=== PATIENT | female | born 1930 | race Caucasian/White ===

== ENCOUNTER 2018-05-30 10:23 | Inpatient (IN) | payer MEDICARE ==
[~2018-05-30] VITALS: Ht 147.3 cm; Wt 92.7 kg
[~2018-05-30 10:23] MED LIST: ACET-2717 PO; AEC81 PO; ALBUTEROL NEB; ATOR40TA28 PO; CARB-100 PO; DEXT1CAP3 PO; FISH1CAP63 PO; ISOS30TA6 PO; METO-408 PO; MULT-1250 PO; NITR0.4T SL; Q10 PO; VIT1TABL6 PO; [UNRECOGNIZED DRUG - OTHER] PUFF
[2018-05-30] MEDS ORDERED: METOPROLOL TARTRATE 1 MG/ML 5ML VIAL IV ONE ×3 (11:26→12:36)
[2018-05-30] MEDS ORDERED: SODIUM CHLORIDE 0.9% 500ML 500 ML IV ONE (11:26)
[2018-05-30 11:27] LABS: BASOPHILS % (AUTO) 0.5 % (0.0-5.0); EOSINOPHILS % (AUTO) 0.8 % (0.0-8.0); LYMPHOCYTES % (AUTO) 12.4 % (21.0-51.0); MEAN CORPUSCULAR VOLUME 93.8 fL (79-99); MONOCYTES % (AUTO) 6.9 % (3.0-13.0); NEUTROPHILS % (AUTO) 79.4 % (40.0-77.0); PLATELET COUNT (AUTO) 265 K/uL (130-400); RED BLOOD CELL COUNT(AUTO) 4.16 MIL/uL (4.00-5.50); RED CELL DISTRIBUTION WIDTH 14.3 % (11.0-15.5); WHITE BLOOD COUNT (AUTO) 7.6 K/uL (4.8-10.8)
[2018-05-30 11:42] LABS: CREATININE 0.9 mg/dL (0.5-1.5); POTASSIUM 4.2 mmol/L (3.5-5.1)
[2018-05-30 11:47] LABS: ALBUMIN 3.3 g/dL (3.5-5.0); BILIRUBIN,TOTAL 0.8 mg/dL (0.2-1.0); TOTAL PROTEIN, SERUM 6.7 g/dL (6.0-8.3)
[2018-05-30 12:04] LABS: TROPONIN I 0.25 ng/mL (0.00-0.06)
[2018-05-30] MEDS ORDERED: ASPIRIN 81MG TAB.CHEW ONE (12:36)
[2018-05-30] MEDS ORDERED: SODIUM CHLORIDE 0.9% 1000ML 1,000 ML IV SCH (14:15)
[2018-05-30] MEDS ORDERED: DILTIAZEM 125MG+100 ML NS 125 ML IV SCH (14:15)
[2018-05-30 14:45] VITALS: BP 137/83
[2018-05-30 16:35] VITALS: BP 124/70
[2018-05-30] MEDS ORDERED: MIDO5TAB PO (18:02)
[2018-05-30] MEDS ORDERED: SALBUTAMOL PUFF (18:02)
[2018-05-30] MEDS ORDERED: ALBUTEROL NEB (18:02)
[2018-05-30] MEDS: IPRATROPIUM 0.5 MG/2.5 ML INH IH SCH (18:46)
[2018-05-30 19:23] LABS: TROPONIN I 0.43 ng/mL (0.00-0.06)
[2018-05-30 19:38] VITALS: BP 107/75
[2018-05-30 23:36] VITALS: BP 132/82
[2018-05-31] MEDS: IPRATROPIUM 0.5 MG/2.5 ML INH IH SCH ×5 (01:17→23:19)
[2018-05-31 03:36] LABS: TROPONIN I 0.38 ng/mL (0.00-0.06)
[2018-05-31 03:58] VITALS: BP 147/97
[2018-05-31 07:41] VITALS: BP 154/81
[2018-05-31] MEDS ORDERED: ACETAMINOPHEN 325 MG TAB PO PRN (08:30)
[2018-05-31] MEDS: LEVOFLOXACIN 500 MG/D5W 100 ML 100 ML IV SCH (08:55)
[2018-05-31] MEDS: METHYLPREDNISOLONE SOD SUCC 125MG/2ML VIAL IVP SCH ×2 (08:55→16:06)
[2018-05-31] MEDS: ASPIRIN 325 MG TABLET PO SCH (09:02)
[2018-05-31 09:06] LABS: TROPONIN I 0.31 ng/mL (0.00-0.06)
[2018-05-31] MEDS ORDERED: FUROSEMIDE 10 MG/ML 2ML VIAL IV SCH (09:45)
[2018-05-31 11:25] VITALS: BP 135/88
[2018-05-31 11:33] VITALS: BP 140/91
[2018-05-31] MEDS: METOPROLOL TARTRATE 25 MG TAB PO SCH ×2 (11:57→22:24)
[2018-05-31 16:39] VITALS: BP 129/94
[2018-05-31 19:03] VITALS: BP 127/75
[2018-06-01 00:13] VITALS: BP 129/95
[2018-06-01] MEDS: METHYLPREDNISOLONE SOD SUCC 125MG/2ML VIAL IVP SCH ×4 (00:25→23:55)
[2018-06-01 04:16] VITALS: BP 134/87
[2018-06-01] MEDS: IPRATROPIUM 0.5 MG/2.5 ML INH IH SCH ×3 (06:51→19:42)
[2018-06-01 07:32] VITALS: BP 144/87
[2018-06-01] MEDS: LEVOFLOXACIN 500 MG/D5W 100 ML 100 ML IV SCH (10:02)
[2018-06-01] MEDS: ASPIRIN 325 MG TABLET PO SCH (10:02)
[2018-06-01] MEDS: FUROSEMIDE 10 MG/ML 2ML VIAL IV SCH ×2 (10:02→20:56)
[2018-06-01] MEDS: METOPROLOL TARTRATE 25 MG TAB PO SCH ×2 (10:02→20:57)
[2018-06-01 11:07] VITALS: BP 136/83
[2018-06-01] MEDS ORDERED: NITROGLYCERIN 0.4 MG SL TAB SL PRN (13:00)
[2018-06-01] MEDS ORDERED: ALBUTEROL SULFATE 0.083% 2.5 MG/3 ML INH IH PRN (13:00)
[2018-06-01] MEDS: SINEMET PO SCH ×2 (14:00→20:58)
[2018-06-01] MEDS: MIDODRINE HCL 5 MG TABLET PO SCH ×2 (14:00→20:57)
[2018-06-01 16:16] VITALS: BP 129/85
[2018-06-01 19:45] VITALS: BP 127/82
[2018-06-01] MEDS ORDERED: ATORVASTATIN CALCIUM 40 MG TABLET PO SCH (21:00)
[2018-06-02] VITALS: BP 145/91
[2018-06-02] MEDS: IPRATROPIUM 0.5 MG/2.5 ML INH IH SCH ×3 (00:25→10:57)
[2018-06-02 04:00] VITALS: BP 141/75
[2018-06-02 04:25] LABS: CREATININE 1.3 mg/dL (0.5-1.5); POTASSIUM 3.3 mmol/L (3.5-5.1)
[2018-06-02 08:09] VITALS: BP 138/76
[2018-06-02] MEDS: METOPROLOL TARTRATE 25 MG TAB PO SCH (08:37)
[2018-06-02] MEDS: ASPIRIN 325 MG TABLET PO SCH (08:37)
[2018-06-02] MEDS: MIDODRINE HCL 5 MG TABLET PO SCH ×2 (08:38→14:16)
[2018-06-02] MEDS: SINEMET PO SCH ×2 (08:39→14:10)
[2018-06-02] MEDS: METHYLPREDNISOLONE SOD SUCC 125MG/2ML VIAL IVP SCH (08:43)
[2018-06-02] MEDS: LEVOFLOXACIN 500 MG/D5W 100 ML 100 ML IV SCH (08:44)
[2018-06-02] MEDS ORDERED: MULTIVITAMINS/MINERALS/IRO TAB PO SCH (09:00)
[2018-06-02] MEDS ORDERED: FUROSEMIDE 20 MG TABLET PO SCH (09:00)
[2018-06-02] MEDS ORDERED: SALBUTAMOL PO PRN (09:00)
[2018-06-02] MEDS ORDERED: **HM** CO Q-10 200MG PO SCH (09:00)
[2018-06-02] MEDS ORDERED: [UNRECOGNIZED DRUG - OTHER] PO SCH (09:00)
[2018-06-02] MEDS ORDERED: ISOSORBIDE MONO 30MG TAB SR PO SCH (09:00)
[2018-06-02] MEDS ORDERED: FISH OIL 1000 MG/CAP PO SCH (09:00)
[2018-06-02 11:28] VITALS: BP 152/77
== END 2018-06-02 15:10 | disposition home or self-care (01) | DRG 190 ==
LOC: EDH 10:23 → EDHIP 13:20 → 2DH 14:36
PROVIDERS: ADMIT Internal Medicine Hematology & Oncology; ATTEND Internal Medicine Hematology & Oncology
DX: J44.1 Chronic obstructive pulmonary disease with (acute) exacerbation (principal); I50.33 Acute on chronic diastolic (congestive) heart failure; J45.901 Unspecified asthma with (acute) exacerbation; C56.9 Malignant neoplasm of unspecified ovary; I25.10 Atherosclerotic heart disease of native coronary artery without angina pectoris; G20 Parkinson's disease; I44.7 Left bundle-branch block, unspecified; F02.80 Dementia in other diseases classified elsewhere, unspecified severity, without behavioral disturbance, psychotic disturbance, mood disturbance, and anxiety; I48.91 Unspecified atrial fibrillation; R74.8 Abnormal levels of other serum enzymes; E78.5 Hyperlipidemia, unspecified; I11.0 Hypertensive heart disease with heart failure; Z95.1 Presence of aortocoronary bypass graft; Z85.841 Personal history of malignant neoplasm of brain; Z92.21 Personal history of antineoplastic chemotherapy
CPT/HCPCS: 36415; 71045; 80048; 80053; 82550; 83874; 83880; 84443; 84484; 85025; 93005; 93306; 94640; 94664; 97039; A4218; J1940; J1956; J2930; J3490; J7040

== ENCOUNTER 2018-09-28 12:05 | Inpatient (IN) | payer MEDICARE ==
[~2018-09-28] VITALS: Ht 149.9 cm; Wt 46.4 kg
[~2018-09-28 12:05] MED LIST changes: -DEXT1CAP3 PO; +MIDO5TAB PO; +SALBUTAMOL PUFF; -VIT1TABL6 PO; -[UNRECOGNIZED DRUG - OTHER] PUFF
[2018-09-28] MEDS ORDERED: IPRATROPIUM/ALBUTEROL SULFATE 3 ML SOLUTION IH ONE (12:22)
[2018-09-28 12:42] LABS: ABG BASE EXCESS 3.1 mmol/L (-2.0-3.0); ABG HCO3 27.1 mmol/L (21.0-28.0); ABG OXYGEN SATURATION 94.5 % (95.0-99.0); ABG PCO2 40 mmHg (32-45)
[2018-09-28] MEDS ORDERED: METHYLPREDNISOLONE SOD SUCC 125MG/2ML VIAL ONE ×2 (12:45→12:58)
[2018-09-28] MEDS ORDERED: SODIUM CHLORIDE 0.9% 100 ML IV ONE (12:45)
[2018-09-28 13:12] LABS: BASOPHILS % (AUTO) 0.1 % (0.0-5.0); EOSINOPHILS % (AUTO) 0.3 % (0.0-8.0); HEMATOCRIT 38.6 % (36-48); MEAN CORPUSCULAR HEMOGLOBIN 30.1 pg (27.0-33.0); MEAN CORPUSCULAR HGB CONC 33.2 g/dL (32.0-36.0); MEAN CORPUSCULAR VOLUME 90.6 fL (79-99); MONOCYTES % (AUTO) 7.6 % (3.0-13.0); PLATELET COUNT (AUTO) 306 K/uL (130-400); RED BLOOD CELL COUNT(AUTO) 4.26 MIL/uL (4.00-5.50); RED CELL DISTRIBUTION WIDTH 15.1 % (11.0-15.5); WHITE BLOOD COUNT (AUTO) 9.6 K/uL (4.8-10.8)
[2018-09-28 13:15] LABS: ALBUMIN 3.2 g/dL (3.5-5.0); BILIRUBIN,DIRECT 0.1 mg/dL (0.0-0.3); BILIRUBIN,TOTAL 0.4 mg/dL (0.2-1.0); CREATININE 1.1 mg/dL (0.5-1.5); TOTAL PROTEIN, SERUM 6.6 g/dL (6.0-8.3)
[2018-09-28 13:47] LABS: B-TYPE NATRIURETIC PEPTIDE > 5000 pg/mL (0-100)
[2018-09-28] MEDS ORDERED: LACTULOSE 20 GM/30 ML UDCUP PO PRN (15:30)
[2018-09-28] MEDS ORDERED: NITROGLYCERIN 0.4 MG SL TAB SL PRN ×2 (15:30→23:15)
[2018-09-28] MEDS: METHYLPREDNISOLONE SOD SUCC 125MG/2ML VIAL IV SCH ×2 (15:30→23:25)
[2018-09-28] MEDS ORDERED: ACETAMINOPHEN 325 MG TAB PO PRN ×2 (15:30)
[2018-09-28] MEDS ORDERED: ONDANSETRON HCL 4 MG/2 ML VIAL IV PRN (15:30)
[2018-09-28] MEDS ORDERED: HYDRALAZINE HCL 20 MG/ML VIAL IV PRN (15:30)
[2018-09-28 18:14] VITALS: BP 138/77
[2018-09-28] MEDS: LEVOFLOXACIN 500 MG/D5W 100 ML 100 ML IV SCH (18:49)
[2018-09-28] MEDS: IPRATROPIUM/ALBUTEROL SULFATE 3 ML SOLUTION IH SCH ×2 (20:04→23:24)
[2018-09-28] MEDS: BUDESONIDE 0.5 MG/2 ML INH IH SCH (20:07)
[2018-09-28] MEDS: FUROSEMIDE 10 MG/ML 4ML VIAL IVP SCH (20:10)
[2018-09-28] MEDS: FAMOTIDINE/PF 20 MG/2 ML VIAL IV SCH (20:11)
[2018-09-28] MEDS: METOPROLOL TARTRATE 25 MG TAB PO SCH (20:11)
[2018-09-28 23:09] VITALS: BP 121/81
[2018-09-28] MEDS ORDERED: LISI2.5T2 PO (23:12)
[2018-09-28] MEDS ORDERED: PIMA34CA PO (23:12)
[2018-09-28] MEDS ORDERED: FURO20TA4 PO (23:12)
[2018-09-29 04:00] VITALS: BP 119/79
[2018-09-29 04:49] LABS: ABG BASE EXCESS 3.9 mmol/L (-2.0-3.0); ABG HCO3 27.2 mmol/L (21.0-28.0); ABG OXYGEN SATURATION 98.8 % (95.0-99.0); ABG PCO2 37 mmHg (32-45)
[2018-09-29] MEDS: BUDESONIDE 0.5 MG/2 ML INH IH SCH ×2 (06:18→19:08)
[2018-09-29] MEDS: IPRATROPIUM/ALBUTEROL SULFATE 3 ML SOLUTION IH SCH ×3 (06:18→19:08)
[2018-09-29 07:32] LABS: HEMATOCRIT 36.8 % (36-48); MEAN CORPUSCULAR HEMOGLOBIN 30.1 pg (27.0-33.0); MEAN CORPUSCULAR HGB CONC 33.4 g/dL (32.0-36.0); PLATELET COUNT (AUTO) 256 K/uL (130-400); RED BLOOD CELL COUNT(AUTO) 4.09 MIL/uL (4.00-5.50); RED CELL DISTRIBUTION WIDTH 14.9 % (11.0-15.5); WHITE BLOOD COUNT (AUTO) 8.7 K/uL (4.8-10.8)
[2018-09-29 07:39] LABS: CREATININE 1.3 mg/dL (0.5-1.5); POTASSIUM 3.8 mmol/L (3.5-5.1)
[2018-09-29 07:41] VITALS: BP 130/80
[2018-09-29] MEDS: ASPIRIN 81 MG EC TAB PO SCH (08:28)
[2018-09-29] MEDS: METOPROLOL TARTRATE 25 MG TAB PO SCH ×2 (08:29→21:00)
[2018-09-29] MEDS: LISINOPRIL 2.5 MG TABLET PO SCH (08:29)
[2018-09-29] MEDS: MULTIVITAMIN WITH MINERALS TABLET PO SCH (08:29)
[2018-09-29] MEDS: FISH OIL 1000 MG/CAP PO SCH (08:29)
[2018-09-29] MEDS: FAMOTIDINE/PF 20 MG/2 ML VIAL IV SCH ×2 (08:30→21:35)
[2018-09-29] MEDS: METHYLPREDNISOLONE SOD SUCC 125MG/2ML VIAL IV SCH ×3 (08:30→23:30)
[2018-09-29] MEDS: FUROSEMIDE 10 MG/ML 4ML VIAL IVP SCH ×2 (08:30→21:36)
[2018-09-29] MEDS: MIDODRINE HCL 5 MG TABLET PO SCH ×3 (08:30→21:00)
[2018-09-29] MEDS: ENOXAPARIN SODIUM 40 MG/0.4 ML SYRINGE SQ SCH (08:43)
[2018-09-29] MEDS: [UNRECOGNIZED DRUG - OTHER] PO SCH (09:00)
[2018-09-29] MEDS: LEVODOPA PO SCH ×3 (09:00→21:00)
[2018-09-29] MEDS ORDERED: FUROSEMIDE 20 MG TABLET PO SCH (09:00)
[2018-09-29] MEDS: CO ENZYME Q10 PO SCH (09:00)
[2018-09-29] MEDS: CARBIDOPA PO SCH ×3 (09:00→21:00)
[2018-09-29] MEDS: PIMAVANSERIN TARTRATE 34 MG PO SCH (09:00)
[2018-09-29] MEDS: [UNRECOGNIZED DRUG - OTHER] PO SCH ×3 (09:00→21:00)
[2018-09-29 11:17] VITALS: BP 118/74
[2018-09-29] MEDS: LEVOFLOXACIN 500 MG/D5W 100 ML 100 ML IV SCH (16:00)
--- NOTE | 2018-09-29 16:00 | NUR ---
WARREN BERNAL NOTE MET W PT AND SPOUSE WHO WILL PROVIDE TRANSPORT HOME ; PT ENG SPEAKING, FRAIL, AAOX3,O2 2 L NC IN USE; LIVES WITH STEVEN RAMIREZ , HAS DME, WKR, SAFETY EQUIPPED RESTROOM, WHEEL CHAIR, ETC. HAS HH AND PT IN THE PAST AT HOME. WANTS TO GO HOME RATHER THAN TO A FACLITY IF NEEDED THERAPY AFTER DISCHARGE; SPOUSE IN AGREEMENT; EXPLAINE DHTE PROCESS OF O2 AND HOW IF NEEDED WOULD RQUIRED CERTIFICATION. VERBALIZED UNDERSTANDING. WILL FOLLOW NEEDE Addendum: 09/29/18 at 1847 by MADELINE JAUREGUI RN CM Amended: Links added.
[2018-09-29 16:28] VITALS: BP 133/85
[2018-09-29 19:13] VITALS: BP 126/80
[2018-09-29] MEDS ORDERED: METOPROLOL SUCCINATE PO SCH (21:00)
[2018-09-29] MEDS: ATORVASTATIN CALCIUM 40 MG TABLET PO SCH (21:35)
[2018-09-29 23:26] VITALS: BP 112/67
[2018-09-30] MEDS: IPRATROPIUM/ALBUTEROL SULFATE 3 ML SOLUTION IH SCH ×4 (00:25→19:26)
[2018-09-30 03:29] VITALS: BP 139/73
[2018-09-30 04:25] LABS: HEMATOCRIT 37.1 % (36-48); LYMPHOCYTES % (AUTO) 2.6 % (21.0-51.0); MEAN CORPUSCULAR HEMOGLOBIN 29.5 pg (27.0-33.0); MEAN CORPUSCULAR VOLUME 89.4 fL (79-99); MONOCYTES % (AUTO) 3.5 % (3.0-13.0); NEUTROPHILS % (AUTO) 93.9 % (40.0-77.0); PLATELET COUNT (AUTO) 299 K/uL (130-400); RED BLOOD CELL COUNT(AUTO) 4.15 MIL/uL (4.00-5.50); RED CELL DISTRIBUTION WIDTH 14.5 % (11.0-15.5); WHITE BLOOD COUNT (AUTO) 11.8 K/uL (4.8-10.8)
[2018-09-30 04:37] LABS: CREATININE 1.4 mg/dL (0.5-1.5)
[2018-09-30] MEDS ORDERED: LIDOCAINE HCL-MPF 1% 2ML VIAL IVP PRN (05:15)
[2018-09-30] MEDS ORDERED: POTASSIUM CHLORIDE 10MEQ/100ML 100 ML IV PRN (05:15)
[2018-09-30] MEDS ORDERED: MAGNESIUM 2GM PREMIX 50ML 50 ML IV PRN (05:15)
[2018-09-30] MEDS ORDERED: POTASSIUM CHLORIDE 10% ELIXIR 20 MEQ/15 ML UDCUP PO PRN (05:15)
[2018-09-30] MEDS: BUDESONIDE 0.5 MG/2 ML INH IH SCH ×2 (05:30→19:26)
[2018-09-30] MEDS: POTASSIUM CHLORIDE 20 MEQ ERTAB PO PRN ×3 (05:49→13:25)
[2018-09-30] MEDS: METHYLPREDNISOLONE SOD SUCC 125MG/2ML VIAL IV SCH ×2 (06:55→15:30)
[2018-09-30 07:38] VITALS: BP 130/58
--- NOTE | 2018-09-30 08:00 | NUR ---
PT SITTING UP IN THE CHAIR. AT THE BEDSIDE. REVIEW PLAN OF CARE, PT IS ON 2LITER NC DENIES ANY SOB. CALL LIGHT INREACH.. PT HAS A PORTILLO CATHETER , PATENCY NOTED AND SECURE TO HER RT THIGH, WITH A CLEAR YELLOW URINE FLOW . CALL LIGHT IN REACH .
[2018-09-30] MEDS: METOPROLOL TARTRATE 25 MG TAB PO SCH ×2 (08:33→20:36)
[2018-09-30] MEDS: ASPIRIN 81 MG EC TAB PO SCH (08:33)
[2018-09-30] MEDS: LISINOPRIL 2.5 MG TABLET PO SCH (08:33)
[2018-09-30] MEDS: MIDODRINE HCL 5 MG TABLET PO SCH ×3 (08:33→20:36)
[2018-09-30] MEDS: MULTIVITAMIN WITH MINERALS TABLET PO SCH (08:33)
[2018-09-30] MEDS: FUROSEMIDE 10 MG/ML 4ML VIAL IVP SCH ×2 (08:34→20:36)
[2018-09-30] MEDS: FAMOTIDINE/PF 20 MG/2 ML VIAL IV SCH ×2 (08:34→20:36)
[2018-09-30] MEDS: FISH OIL 1000 MG/CAP PO SCH (08:34)
[2018-09-30] MEDS: LEVODOPA PO SCH ×3 (08:35→20:37)
[2018-09-30] MEDS: CARBIDOPA PO SCH ×3 (08:35→20:37)
[2018-09-30] MEDS: [UNRECOGNIZED DRUG - OTHER] PO SCH (08:35)
[2018-09-30] MEDS: [UNRECOGNIZED DRUG - OTHER] PO SCH ×3 (08:35→20:37)
[2018-09-30] MEDS: CO ENZYME Q10 PO SCH (08:35)
[2018-09-30] MEDS: PIMAVANSERIN TARTRATE 34 MG PO SCH (08:37)
[2018-09-30] MEDS: ENOXAPARIN SODIUM 40 MG/0.4 ML SYRINGE SQ SCH (08:38)
[2018-09-30 11:08] VITALS: BP 108/70
--- NOTE | 2018-09-30 13:30 | NUR ---
OFF O2 ON ROOM AIR . TO MONITOR RESP O2 SAT. OR RESP DISTRESS
--- NOTE | 2018-09-30 15:10 | NUR ---
ROSANA AGUILERA BLUEPRINT PROCESSOR. CALLED AND UPDATE OF PT. ASSESSMENT . CARE AND DRCrescencio ORDERS OF DR. JORGE AND DR SAENZ CLEARANCE OKAY TO GO HOME,, RE ASSESS PRIOR IF PT NEEDED O2 WITH DR. LATIF TO FOLLOW
[2018-09-30] MEDS: LEVOFLOXACIN 500 MG/D5W 100 ML 100 ML IV SCH (15:30)
--- NOTE | 2018-09-30 15:30 | NUR ---
SPOT CHECK OXGYEN RESULTS OF 02 SAT 94% RR OF 18 , OFFER NO SOB .
[2018-09-30 15:52] VITALS: BP 115/71
[2018-09-30 15:58] LABS: ABG BASE EXCESS 7.2 mmol/L (-2.0-3.0); ABG HCO3 30.2 mmol/L (21.0-28.0); ABG OXYGEN SATURATION 95.3 % (95.0-99.0); ABG PCO2 37 mmHg (32-45)
--- NOTE | 2018-09-30 16:15 | NUR ---
PORTILLO CATHETER DC PROCEDURE EXPLAIN TO PT. BALLOON DEFATED AND ASK TO TAKE A DEEP BREATH HOLD AND PORTILLO CATHETER DC . TOLERATE WELL ASK TO CALL NURSE OR STAFF TO MONITOR 1ST VOID AFTER DC PORTILLO CATHETER CALL LIGHT INREACH.
--- NOTE | 2018-09-30 16:50 | NUR ---
[facility]'S RESULTS CALLED IN TO ROSANA BUCK ACADEMIC SUPPORT COORDINATOR. PH OF 7.52, PCO2 OF 37.2 PO2 67.9 O2 SAT OF 95.3 % HCO2 OF 30.2 ON ROOM AIR . DISCHARGE HOME AND TO FOLLOW WITH DR. SAENZ. AND DR. JORGE . CARE .
--- NOTE | 2018-09-30 18:10 | NUR ---
DR. SAENZ CALLED AND UPDATE OF PT .STATUS OF DISCHARGE HOME AFTER PT VOIDS . AND FOLLOWUP CARE
--- NOTE | 2018-09-30 18:20 | NUR ---
PT IS STILL NOT VOIDED YET. CALL LIGHT IN REACH.
[2018-09-30 20:03] VITALS: BP 120/71
[2018-09-30] MEDS: ATORVASTATIN CALCIUM 40 MG TABLET PO SCH (20:36)
--- NOTE | 2018-09-30 23:08 | NUR ---
PT VOIDED 150 CC CLEAR YELLOW URINE. IV REMOVED. D/C INSTRUCTIONS PRINTED AND GIVEN TO PATIENT ALONG WITH PRESCRIPTION. PT VERBALIZES UNDERSTANDING. WHEELED DOWN BY AVTAR NDIAYE
== END 2018-09-30 22:45 | disposition home or self-care (01) | DRG 291 ==
LOC: EDH 12:05 → EDHIP 15:29 → 4BH 17:16
PROVIDERS: ADMIT Internal Medicine; ATTEND Internal Medicine
PROC: 5A09357 Assistance with Respiratory Ventilation, Less than 24 Consecutive Hours, Continuous Positive Airway Pressure (ICD-10-PCS; principal; 2018-09-28)
DX: I11.0 Hypertensive heart disease with heart failure (principal); J96.01 Acute respiratory failure with hypoxia; J44.1 Chronic obstructive pulmonary disease with (acute) exacerbation; C56.9 Malignant neoplasm of unspecified ovary; I50.33 Acute on chronic diastolic (congestive) heart failure; Z99.81 Dependence on supplemental oxygen; E78.5 Hyperlipidemia, unspecified; F03.90 Unspecified dementia, unspecified severity, without behavioral disturbance, psychotic disturbance, mood disturbance, and anxiety; G20 Parkinson's disease; I25.10 Atherosclerotic heart disease of native coronary artery without angina pectoris; Z66 Do not resuscitate; Z82.0 Family history of epilepsy and other diseases of the nervous system; Z82.3 Family history of stroke; Z82.49 Family history of ischemic heart disease and other diseases of the circulatory system; Z82.5 Family history of asthma and other chronic lower respiratory diseases; Z83.3 Family history of diabetes mellitus; Z85.43 Personal history of malignant neoplasm of ovary; Z87.891 Personal history of nicotine dependence; Z90.710 Acquired absence of both cervix and uterus; Z95.1 Presence of aortocoronary bypass graft; Z80.42 Family history of malignant neoplasm of prostate; Z90.722 Acquired absence of ovaries, bilateral
CPT/HCPCS: 36415; 36600; 71045; 80048; 80076; 82435; 82550; 82803; 82947; 83036; 83605; 83735; 83880; 84132; 84295; 84484; 85018; 85025; 85027; 87040; 87804; 93005; 94640; 94660; 94664; 97039; 99291; G0378; J1650; J1940; J1956; J2930; J3475; J3490

== ENCOUNTER → 2019-05-02 | Outpatient (CLI) | payer MEDICARE ==
[~2019-05-02] MED LIST changes: -ALBUTEROL NEB; +FURO20TA4 PO; -ISOS30TA6 PO; +LISI2.5T2 PO; -MIDO5TAB PO; +MIDO5TAB4 PO; +PIMA34CA PO; -SALBUTAMOL PUFF
== END | disposition home or self-care (01) ==
LOC: SHCH 14:41
PROVIDERS: ATTEND Internal Medicine Cardiovascular Disease
DX: I08.3 Combined rheumatic disorders of mitral, aortic and tricuspid valves (principal); I11.9 Hypertensive heart disease without heart failure
CPT/HCPCS: 93306

== ENCOUNTER 2019-07-01 08:35 | Observation (INO) | payer MEDICARE ==
[2019-06-29 10:00] VITALS: BP 156/76
[2019-06-29 10:12] LABS: BASOPHILS % (AUTO) 0.5 % (0.0-5.0); EOSINOPHILS % (AUTO) 2.2 % (0.0-8.0); HEMATOCRIT 38.6 % (36-48); LYMPHOCYTES % (AUTO) 26.1 % (21.0-51.0); MEAN CORPUSCULAR HEMOGLOBIN 29.9 pg (27.0-33.0); MEAN CORPUSCULAR HGB CONC 31.1 g/dL (32.0-36.0); NEUTROPHILS % (AUTO) 61.7 % (40.0-77.0); PLATELET COUNT (AUTO) 283 K/uL (130-400); RED BLOOD CELL COUNT(AUTO) 4.02 MIL/uL (4.00-5.50); RED CELL DISTRIBUTION WIDTH 13.7 % (11.0-15.5)
--- NOTE | 2019-06-29 10:14 | NUR ---
CLARIFICATION PER DR. BARRON LANDA'S RETAIL STOCK CLERK, PROCEDURE IS SOCIAL WORK SUPERVISOR-D
[2019-06-29 10:28] LABS: CREATININE 1.3 mg/dL (0.5-1.5); POTASSIUM 4.4 mmol/L (3.5-5.1)
[2019-06-29 10:29] LABS: INR 1.04 (0.85-1.15); PROTHROMBIN TIME 10.9 SEC (9.6-11.6)
--- NOTE | 2019-06-29 11:10 | NUR ---
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 DIAGNOSED IN 2009, ABDOMINAL SURGERY DONE 2010. PROSPER EVANS INFECTION CONTROL AND LELA RN/KRAIN EVANS PAINT POURER NOTIFIED.
--- NOTE | 2019-06-29 11:24 | NUR ---
CHRONIC COUGH PT COUGHS OCCASIONALLY DURING PRE OP INTERVIEW, PT AND STATES SHE HAS CHRONIC COUGH FOR SEVERAL YRS NOW ON AND OFF DUE TO COPD, PT STATES IT HAS BEEN THE SAME, NON-PRODUCTIVE. PT AFEBRILE. SENAIT STEWART NOTIFIED. MAY PROCEED WITH PLANNED PROCEDURE.
[2019-07-01] VITALS (10 sets, daily range): BP systolic 67–157; BP diastolic 43–91
[~2019-07-01] VITALS: Ht 147.3 cm; Wt 42.6 kg
[2019-07-01] MEDS: CEFAZOLIN SODIUM 1 GM VIAL IVP SCH (05:00)
[~2019-07-01 08:35] MED LIST changes: +ALBUTEROL IH; +CARV3.12 PO; -FISH1CAP63 PO; -METO-408 PO; -MULT-1250 PO; -NITR0.4T SL; +ONDA8TAB65 PO; -Q10 PO; +SALBUTAMOL IH; +SODIUM CHLORIDE IH
[2019-07-01] MEDS ORDERED: SODIUM CHLORIDE 0.9% 1000ML 1,000 ML IV ONE (09:14)
[2019-07-01] MEDS ORDERED: BUPIVACAINE/PF 0.25% 30ML VIAL IJ ONE (12:03)
[2019-07-01] MEDS ORDERED: MEPERIDINE-PF 25 MG/ML SYG ONE ×2 (12:03→13:46)
[2019-07-01] MEDS ORDERED: IODIXANOL 320 MG/ML 100 ML VIAL ONE (12:03)
[2019-07-01] MEDS ORDERED: LIDOCAINE HCL 1% MDV 50ML VIAL ONE (12:03)
[2019-07-01] MEDS ORDERED: CEFAZOLIN SODIUM 1 GM VIAL ONE (12:03)
[2019-07-01] MEDS ORDERED: MIDAZOLAM HCL 1 MG/ML 2ML VIAL ONE ×2 (12:03→13:46)
[2019-07-01] MEDS ORDERED: ONDANSETRON ODT 4 MG TAB PO PRN (15:00)
[2019-07-01] MEDS ORDERED: ACETAMINOPHEN-CODEINE 300/30MG TAB PO PRN (15:00)
[2019-07-01] MEDS: MIDODRINE HCL 5 MG TABLET PO SCH ×2 (17:28→21:00)
[2019-07-01] MEDS: ALBUTEROL SULFATE 0.083% 2.5 MG/3 ML INH IH PRN (18:58)
[2019-07-01] MEDS ORDERED: LISINOPRIL 2.5 MG TABLET PO SCH (21:00)
[2019-07-01] MEDS ORDERED: CARVEDILOL 3.125 MG TABLET PO SCH (21:00)
[2019-07-01] MEDS ORDERED: PIMAVANSERIN TARTRATE 34 MG PO SCH (21:00)
[2019-07-01] MEDS ORDERED: LMEFOLATE CA PO SCH (21:00)
[2019-07-01] MEDS ORDERED: ACETYL PO SCH (21:00)
[2019-07-01] MEDS ORDERED: METHYL B12 PO SCH (21:00)
[2019-07-01] MEDS ORDERED: ATORVASTATIN CALCIUM 40 MG TABLET PO SCH (21:00)
[2019-07-01] MEDS ORDERED: MIDODRINE HCL 5 MG TABLET PO SCH (21:00)
[2019-07-01] MEDS ORDERED: ASPIRIN 81 MG EC TAB PO SCH (21:00)
[2019-07-01] MEDS: LEVODOPA PO SCH (21:38)
[2019-07-01] MEDS: CARBIDOPA PO SCH (21:38)
[2019-07-02 04:05] VITALS: BP 127/67
[2019-07-02] MEDS: CEFAZOLIN SODIUM 1 GM VIAL IVP SCH (05:00)
[2019-07-02] MEDS: ALBUTEROL SULFATE 0.083% 2.5 MG/3 ML INH IH PRN (06:51)
[2019-07-02 07:56] VITALS: BP 152/70
--- NOTE | 2019-07-02 08:00 | NUR ---
AM NOTE Easy to arouse. Oriented x3. Denies any pain or shortness of breath. Left arm sling in place, dressing clean and dry to left upper chest. Instructed on use of call light for any assistance, verbalized understanding. V-paced in 70s.
[2019-07-02] MEDS: MIDODRINE HCL 5 MG TABLET PO SCH (08:46)
[2019-07-02] MEDS: CARBIDOPA PO SCH (08:47)
[2019-07-02] MEDS: LEVODOPA PO SCH (08:47)
[2019-07-02] MEDS ORDERED: FUROSEMIDE 20 MG TABLET PO SCH (09:00)
[2019-07-02 11:31] VITALS: BP 86/58
--- NOTE | 2019-07-02 13:30 | NUR ---
DC Pt discharged home as ordered by MD. Education given to pt and spouse on dressing changes daily as per Dr. Felix, verbalized understanding. Taken in wheelchair by CRISTINA Kinsey.
== END 2019-07-02 13:30 | disposition home or self-care (01) ==
LOC: DAH 08:35 → 2AH 08:36 → DAH 08:36
PROVIDERS: ADMIT Internal Medicine Hematology & Oncology; ATTEND Internal Medicine Hematology & Oncology
DX: I50.42 Chronic combined systolic (congestive) and diastolic (congestive) heart failure (principal); I44.7 Left bundle-branch block, unspecified; E78.5 Hyperlipidemia, unspecified; I25.10 Atherosclerotic heart disease of native coronary artery without angina pectoris; I10 Essential (primary) hypertension; I35.1 Nonrheumatic aortic (valve) insufficiency; G20 Parkinson's disease; Z95.5 Presence of coronary angioplasty implant and graft; Z85.43 Personal history of malignant neoplasm of ovary
CPT/HCPCS: 33225; 33249; 36415; 71045 ×2; 80048; 85025; 85610; 85730; 94640 ×2; 94664; 97039; 97161; C1769 ×2; C1882; C1895 ×2; C1900; G0378 ×21; G8979; G8980; G8981; G8982; G8983; J0690; J2175 ×2; J2250 ×2; J3490 ×2; J7030; Q9967; 99156; 99157